=== PATIENT | male | born 1955 | race Caucasian/White ===

== ENCOUNTER 2020-03-27 19:28 | Emergency (ER) | payer OTHER, SELFPAY ==
[2020-03-27] VITALS (11 sets, daily range): BP systolic 110–136; BP diastolic 66–84; PULSE 57–71; RESP 16–32; TEMP 37.2; O2SAT 93–98
--- NOTE | 2020-03-27 19:38 | DI.RAD.S_ITS ---
PROCEDURE: XR CHEST 2V INDICATIONS: shortness of breath TECHNIQUE: 2 views of the chest were acquired. COMPARISON: None. FINDINGS: Surgical changes and devices: None. Lungs and pleura: Lungs are clear. No pleural effusions or pneumothorax. Mediastinum: Mediastinal contours are normal. Heart size is normal. Bones and chest wall: No suspicious bony abnormalities. Soft tissues appear unremarkable. IMPRESSION: No acute pulmonary process. Dictated by: Jennifer Castillo M.D. on 03/27/2020 at 20:15 Approved by: Jennifer Castillo M.D. on 03/27/2020 at 20:15
[2020-03-27 20:21] LABS: Add Manual Diff / Slide Review NO; Basophils Absolute Auto 100 /uL (0-100); Basophils Percent Auto 1.2 % (0-2); Eosinophils Absolute Auto 100 /uL (0-450); Eosinophils Percent Auto 1.6 % (2-4); Hematocrit 41.2 % (41-53); Hemoglobin 13.8 g/dL (13.5-17.5); Lymphocytes Absolute Auto 1800 /uL (1100-4500); Lymphocytes Percent Auto 19.9 % (25-40); Mean Corpuscular HGB Conc 33.6 % (30-36); Mean Corpuscular Hemoglobin 30.4 PG (26-34); Mean Corpuscular Volume 90.4 fL (80-100); Monocytes Absolute Auto 900 /uL (0-900); Monocytes Percent Auto 9.9 % (3-14); Neutrophils Absolute Auto 6000 /uL (1500-7000); Neutrophils Percent Auto 67.4 % (50-75); Platelet Count 269 X10^3/uL (150-400); Red Blood Cell Count 4.55 X10^6/uL (4.5-5.9); Red Cell Distribution Width 13.7 % (11.6-14.8); White Blood Cell Count 8.9 X10^3/uL (4.5-11.0)
[2020-03-27 20:38] LABS: Alanine Aminotransferase 36 IU/L (<50); Albumin Globulin Ratio 1.2 (1.0-2.8); Alkaline Phosphatase 59 U/L (38-126); Aspartate Aminotransferase 40 IU/L (17-59); BUN Creatinine Ratio 25.8 (6-22); Bilirubin Total 1.5 mg/dL (0.2-1.3); Blood Urea Nitrogen 17 mg/dL (9-20); Calcium 8.8 mg/dL (8.4-10.2); Carbon Dioxide 25 mmol/L (22-32); Chloride 106 mmol/L (98-107); Estimated Glomerular Filt Rate > 60.0 mL/min (>60); Globulin 3.3 g/dL (1.7-4.1); Glucose 114 mg/dL (80-110); HEMOLYSIS 37 (0-50); Potassium 3.9 mmol/L (3.4-5.1); Sodium 139 mmol/L (137-145); Total Protein 7.3 g/dL (6.3-8.2)
--- NOTE | 2020-03-27 21:37 | ED.SOB ---
HPI - SOB/Dyspnea General Chief Complaint: Shortness of Breath/Dyspnea Stated Complaint: Not Feeling Well,Fever,Chills,SOB,Cough Time Seen by Provider: 03/27/20 19:40 Source: patient Mode of arrival: Ambulatory Limitations: no limitations History of Present Illness HPI Narrative: 65-year-old male former smoker with noncontributory medical history presents with a chief complaint of a day or 2 of subjective fever, chills, cough with some trouble breathing as well as diarrhea. He denies any runny nose or sore throat. He denies any chest pain or abdominal pain. He denies any trouble with urination such as dysuria, frequency or urgency. 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 He denies any recent antibiotics, travel or exposure to bad food. He denies any exposure to persons known to have COVID-19. MD Complaint: shortness of breath and cough Onset (ago): day(s) Severity: mild Consistency/Duration: constant Relieving factors: nothing Exacerbating factors: nothing Associated symptoms: fever and cough Treatment prior to arrival: none Related Data Home oxygen amount: none Previous Rx's Medication Instructions Recorded diphenoxylate-atropine [Lomotil] 1 tab PO DAILY PRN #10 tab 03/28/20 Review of Systems Constitutional Constitutional: Reports chills, Denies fatigue, Reports fever(s), Denies frequent falls, Denies lethargy and Denies weakness Eyes Eyes: Denies change in vision, Denies eye discharge, Denies irritation and Denies loss of vision ENT Ears, Nose, Mouth, and Throat: Denies change in voice, Denies dizziness, Denies neck pain, Denies sore throat and Denies throat swelling Cardiovascular Cardiovascular: Denies chest pain, Denies irregular heart rhythm, Denies lightheadedness, Denies palpitations, Reports dyspnea, Denies dyspnea on exertion and Denies orthopnea Respiratory Respiratory: Reports cough, Reports dyspnea, Denies dyspnea on exertion and Denies wheezing Gastrointestinal Gastrointestinal: Denies abdominal pain, Denies change in bowel habits, Reports diarrhea, Denies nausea and Denies vomiting Genitourinary Genitourinary: Reports system reviewed and no additional complaints, except as documented Musculoskeletal Musculoskeletal: Denies neck pain and Denies numbness Integumentary/Breasts Skin/Breast: Denies pruritus, Denies erythema, Denies rash and Denies wounds Neurologic Neurologic: Denies behavioral changes, Denies confusion, Denies dizziness, Denies frequent falls, Denies loss of vision, Denies numbness and Denies weakness Psychiatric Psychiatric: Denies anxiety, Denies behavioral changes, Denies confusion, Denies depression, Denies homicidal ideation and Denies suicidal ideation Endocrine Endocrine: Denies fatigue, Denies flushing and Denies palpitations Hematologic/Lymphatic Hematologic/Lymphatic: Denies easy bruising Allergic/Immunologic Allergic/Immunologic: Denies urticaria, Denies throat swelling and Denies wheezing Patient History alcohol intake frequency: holidays/special occasions only Substance Use Type: marijuana Exam Narrative Exam Narrative: GENERAL: [65] year old patient appears stated age. Well-nourished, well-developed patient, in mild distress. HEAD: Atraumatic. Normocephalic. EYES: Pupils equal round and reactive. Extraocular motions intact. No scleral icterus. No injection or drainage. ENT: Nose without bleeding, purulent drainage. Throat without erythema, tonsillar hypertrophy or exudate. Airway patent. NECK: Trachea midline. Non tender CARDIOVASCULAR: Regular rate and rhythm without murmurs, gallops, or rubs. RESPIRATORY: Clear to auscultation. Breath sounds equal bilaterally. No wheezes, rales, or rhonchi. GASTROINTESTINAL: Abdomen soft, non-tender, nondistended. EXTREMITIES: No edema or joint tenderness. BACK: Nontender without deformity or crepitance. No flank tenderness. NEURO: AOx3. SKIN: No rash or erythema of visible areas Initial Vital Signs Initial Vital Signs: Vital Signs Temperature 98.9 F 03/27/20 19:36 Pulse Rate 70 03/27/20 19:36 Respiratory Rate 22 03/27/20 19:36 Blood Pressure 136/84 03/27/20 19:36 Pulse Oximetry 96 03/27/20 19:36 Course Orders Ordered: ED Orders 03/27/20 19:38 XR chest 2V Stat RT Consult Eval and Treat Now 03/27/20 19:58 EKG-12 Lead Stat 03/27/20 20:15 C-Reactive Protein Quant Stat Complete Blood Count AUTO DIFF Stat Comprehensive Metabolic Panel Stat D Dimer Stat Ferritin Stat Lactate (Lactic Acid) Stat Lactate Dehydrogenase Stat Procalcitonin Stat 03/27/20 22:57 CT chest wo con Stat Discontinued Medications Sodium Chloride (Normal Saline 0.9%) 1,000 mls @ 1,000 mls/hr IV BOLUS ONE Stop: 03/27/20 23:44 Vital Signs Vital signs: Vital Signs - 8 hr 03/27/20 19:36 03/27/20 20:00 03/27/20 20:30 Temperature 98.9 F Pulse Rate 71 65 65 Respiratory Rate 22 19 17 Blood Pressure 136/84 Pulse Oximetry 97 98 97 03/27/20 21:00 03/27/20 21:30 03/27/20 22:00 Temperature Pulse Rate 61 59 L 62 Respiratory Rate 17 16 25 H Blood Pressure Pulse Oximetry 95 95 96 03/27/20 22:18 03/27/20 22:30 03/27/20 22:40 Temperature Pulse Rate 60 60 58 L Respiratory Rate 19 19 18 Blood Pressure 110/66 110/66 Pulse Oximetry 95 94 93 03/27/20 23:00 03/27/20 23:30 03/28/20 00:00 Temperature Pulse Rate 61 57 L 56 L Respiratory Rate 32 H 16 14 Blood Pressure Pulse Oximetry 95 95 93 03/28/20 00:30 03/28/20 00:48 Temperature Pulse Rate 62 62 Respiratory Rate 17 17 Blood Pressure 122/67 Pulse Oximetry 94 97 MDM - SOB/Dyspnea Lab Data Result diagrams: 03/27/20 20:15 03/27/20 20:15 Labs: Lab Results 03/27/20 03/27/20 03/27/20 Range/Units 20:15 20:15 20:15 WBC 8.9 (4.5-11.0) X10^3/uL RBC 4.55 (4.5-5.9) X10^6/uL Hgb 13.8 (13.5-17.5) g/dL Hct 41.2 (41-53) % MCV 90.4 (80-100) fL MCH 30.4 (26-34) PG MCHC 33.6 (30-36) % RDW 13.7 (11.6-14.8) % Plt Count 269 (150-400) X10^3/uL Neut % (Auto) 67.4 (50-75) % Lymph % (Auto) 19.9 L (25-40) % [place] % (Auto) 9.9 (3-14) % Eos % (Auto) 1.6 L (2-4) % Baso % (Auto) 1.2 (0-2) % Neut # (Auto) 6000 (0833-8258) /uL Lymph # (Auto) 1800 (0047-8832) /uL [place] # (Auto) 900 (0-900) /uL Eos # (Auto) 100 (0-450) /uL Baso # (Auto) 100 (0-100) /uL D-Dimer (<230) ng/mL Sodium 139 (137-145) mmol/L Potassium 3.9 (3.4-5.1) mmol/L Chloride 106 (98-107) mmol/L Carbon Dioxide 25 (22-32) mmol/L BUN 17 (9-20) mg/dL Creatinine 0.66 (0.66-1.25) mg/dL Estimated GFR > 60.0 (>60) mL/min BUN/Creatinine Ratio 25.8 H (6-22) Glucose 114 H (80-110) mg/dL Lactate 1.0 (0.7-2.1) mmol/L Calcium 8.8 (8.4-10.2) mg/dL Ferritin (18-464) ng/mL Total Bilirubin 1.5 H (0.2-1.3) mg/dL AST 40 (17-59) IU/L ALT 36 (<50) IU/L Alkaline Phosphatase 59 (38-126) U/L Lactate Dehydrogenase (313-618) U/L C-Reactive Protein (<1.0) mg/dL Total Protein 7.3 (6.3-8.2) g/dL Albumin 4.0 (3.5-5.0) g/dL Globulin 3.3 (1.7-4.1) g/dL Albumin/Globulin Ratio 1.2 (1.0-2.8) Procalcitonin (<0.5) ng/mL COVID-19 PCR (Negative) 03/27/20 03/27/20 03/27/20 Range/Units 20:15 20:15 20:15 WBC (4.5-11.0) X10^3/uL RBC (4.5-5.9) X10^6/uL Hgb (13.5-17.5) g/dL Hct (41-53) % MCV (80-100) fL MCH (26-34) PG MCHC (30-36) % RDW (11.6-14.8) % Plt Count (150-400) X10^3/uL Neut % (Auto) (50-75) % Lymph % (Auto) (25-40) % [place] % (Auto) (3-14) % Eos % (Auto) (2-4) % Baso % (Auto) (0-2) % Neut # (Auto) (5433-1176) /uL Lymph # (Auto) (3589-2975) /uL [place] # (Auto) (0-900) /uL Eos # (Auto) (0-450) /uL Baso # (Auto) (0-100) /uL D-Dimer < 200 (<230) ng/mL Sodium (137-145) mmol/L Potassium (3.4-5.1) mmol/L Chloride (98-107) mmol/L Carbon Dioxide (22-32) mmol/L BUN (9-20) mg/dL Creatinine (0.66-1.25) mg/dL Estimated GFR (>60) mL/min BUN/Creatinine Ratio (6-22) Glucose (80-110) mg/dL Lactate (0.7-2.1) mmol/L Calcium (8.4-10.2) mg/dL Ferritin 76 (18-464) ng/mL Total Bilirubin (0.2-1.3) mg/dL AST (17-59) IU/L ALT (<50) IU/L Alkaline Phosphatase (38-126) U/L Lactate Dehydrogenase 597 (313-618) U/L C-Reactive Protein < 0.5 (<1.0) mg/dL Total Protein (6.3-8.2) g/dL Albumin (3.5-5.0) g/dL Globulin (1.7-4.1) g/dL Albumin/Globulin Ratio (1.0-2.8) Procalcitonin < 0.05 (<0.5) ng/mL COVID-19 PCR (Negative) 03/27/20 Range/Units 22:20 WBC (4.5-11.0) X10^3/uL RBC (4.5-5.9) X10^6/uL Hgb (13.5-17.5) g/dL Hct (41-53) % MCV (80-100) fL MCH (26-34) PG MCHC (30-36) % RDW (11.6-14.8) % Plt Count (150-400) X10^3/uL Neut % (Auto) (50-75) % Lymph % (Auto) (25-40) % [place] % (Auto) (3-14) % Eos % (Auto) (2-4) % Baso % (Auto) (0-2) % Neut # (Auto) (1894-4705) /uL Lymph # (Auto) (9769-4849) /uL [place] # (Auto) (0-900) /uL Eos # (Auto) (0-450) /uL Baso # (Auto) (0-100) /uL D-Dimer (<230) ng/mL Sodium (137-145) mmol/L Potassium (3.4-5.1) mmol/L Chloride (98-107) mmol/L Carbon Dioxide (22-32) mmol/L BUN (9-20) mg/dL Creatinine (0.66-1.25) mg/dL Estimated GFR (>60) mL/min BUN/Creatinine Ratio (6-22) Glucose (80-110) mg/dL Lactate (0.7-2.1) mmol/L Calcium (8.4-10.2) mg/dL Ferritin (18-464) ng/mL Total Bilirubin (0.2-1.3) mg/dL AST (17-59) IU/L ALT (<50) IU/L Alkaline Phosphatase (38-126) U/L Lactate Dehydrogenase (313-618) U/L C-Reactive Protein (<1.0) mg/dL Total Protein (6.3-8.2) g/dL Albumin (3.5-5.0) g/dL Globulin (1.7-4.1) g/dL Albumin/Globulin Ratio (1.0-2.8) Procalcitonin (<0.5) ng/mL COVID-19 PCR Negative (Negative) Imaging Data Chest x-ray: Radiologist's Impression: [address] [address] XRay Report Signed Patient: Price Lagunas MMR#: [id number] : 6Acct:[id number] Age/Sex: 65 / MDate of Service: 03/27/20 Loc: ED Accession Number: [id number] Procedure: XR chest 2V Ordering Provider: Kvng Shields D.O. PROCEDURE: XR CHEST 2V INDICATIONS: shortness of breath TECHNIQUE: 2 views of the chest were acquired. COMPARISON: None. FINDINGS: Surgical changes and devices: None. Lungs and pleura: Lungs are clear. No pleural effusions or pneumothorax. Mediastinum: Mediastinal contours are normal. Heart size is normal. Bones and chest wall: No suspicious bony abnormalities. Soft tissues appear unremarkable. IMPRESSION: No acute pulmonary process. Dictated by: Jennifer Castillo M.D. on 03/27/2020 at 20:15 Approved by: Jennifer Castillo M.D. on 03/27/2020 at 20:15 [facility] Narrative Medical decision making narrative: Multiple etiologies for patient's symptoms considered including: [Mild COVID-19 versus infectious diarrhea versus pneumonia versus other] Patient's symptoms improved or duration of stay with above-stated therapies. Findings and discharge diagnosis discussed with patient/family followed by verbalization of understanding Return precautions discussed with patient/family whom verbalize understanding. Discharge Plan Departure Patient Disposition: Home Clinical Impression: Cough Diarrhea Qualifiers: Diarrhea type: unspecified type Qualified Code(s): R19.7 - Diarrhea, unspecified Discharge Date/Time: 03/28/20 00:48 Instructions: Diarrhea, Can COVID-19 be prevented? Activity Restrictions/Additional Instructions: *You have been diagnosed with [ cough, shortness of breath and diarrhea. These symptoms are likely from a viral cause, and it could be COVID] *What to do: * per recommendations from the CDC and the [facility] Department of Health * stay home except to get medical care. Restrict activities outside your home, except for getting medical care. Do not go to work, school, or public areas. Avoid using public transportation, ride sharing, or taxis. * separate yourself from other people in your home. * call ahead before visiting your doctor * Wear a facemask * Cover your coughs and sneezes * Clean your hands often * Avoid sharing household items * Clean all high-touch services every day * Monitor your symptoms and seek prompt medical attention if your illness is worsening, particularly with difficulty in breathing. Discussed continuing home isolation * for individuals with symptoms who are confirmed or suspected cases of COVID-19 and are directed to care for themselves at home, discontinue home isolation under the following conditions: 1. At least 72 hours have passed since recovery, defined as resolution of fever without the use of fever reducing medications, and improvement in respiratory symptoms (cough, shortness of breath) AND, 2. At least 7 days have passed since symptoms 1st appeared Individuals with laboratory confirmed COVID-19 who have not had any symptoms may discontinue home isolation when at least 7 days have passed since the date of their 1st COVID-19 diagnostic test and have had no subsequent illness 1. Drink plenty of fluids with frequent small sips. 2. For the next 24 hours a clear liquid diet is advised. After that please employ a brat diet which would include bananas, rice, apples, toast. 3. Please take medications as directed. 4. Please follow-up with your doctor in the next 1-2 days. Call the office for an appointment. 5. Please return to the emergency Department for any worsening or persistent symptoms, such as increasing pain or fever. Prescriptions: New diphenoxylate-atropine [Lomotil] 2.5-0.025 mg tablet 1 tab PO DAILY PRN (Reason: diarrhea) Qty: 10 RF: 0
[2020-03-27 22:09] LABS: Procalcitonin < 0.05 ng/mL (<0.5)
[2020-03-27 22:26] LABS: D Dimer < 200 ng/mL (<230)
[2020-03-27 22:54] LABS: Lactate Dehydrogenase 597 U/L (313-618)
--- NOTE | 2020-03-27 22:57 | DI.CT.S_ITS ---
PROCEDURE: CT CHEST WO CON INDICATIONS: cough, fever, chills, Shortness of breath TECHNIQUE: Noncontrast 5 mm thick sections acquired from the pulmonary apices to the posterior costophrenic angles. 1 mm lung window, 5 mm thick coronal and sagittal and 7 mm axial MIP reformats were then acquired. For radiation dose reduction, the following was used: automated exposure control, adjustment of mA and/or kV according to patient size. COMPARISON: [facility], CR, XR CHEST 2V, 03/27/2020, 18:40. FINDINGS: Image quality: Excellent. Lungs and pleura: No acute air space opacities. No pleural effusions or pneumothorax. Central and peripheral airways are patent and normal in caliber. Calcified granulomas noted in the left base. Minimal chronic interstitial changes are noted. Mediastinum: Heart size is normal. No pericardial effusion. No mediastinal adenopathy by size criteria. Calcified mediastinal and hilar lymph nodes are present. Thoracic aorta and central pulmonary arteries are normal in size. Esophagus is normal in caliber. Mild hiatal hernia. Bones and chest wall: No suspicious bony lesions. No vertebral body compression fractures. No axillary or supraclavicular adenopathy by size criteria. Thyroid gland is unremarkable . Abdomen: Visualized upper abdominal solid organs and bowel loops appear normal in the absence of contrast. IMPRESSION: 1. Lungs are clear. 2. Calcified granuloma as well as mediastinal lymph nodes suggest prior granulomatous exposure. The above findings are concordant with preliminary report. Dictated by: Jennifer Castillo M.D. on 03/28/2020 at 11:11 Approved by: Jennifer Castillo M.D. on 03/28/2020 at 11:13
[2020-03-27 22:59] LABS: C-Reactive Protein Quant < 0.5 mg/dL (<1.0)
[2020-03-27 23:26] LABS: Ferritin 76 ng/mL (18-464)
[2020-03-28] VITALS: PULSE 56; RESP 14; O2SAT 93
[2020-03-28 00:30] VITALS: PULSE 62; RESP 17; O2SAT 94
[2020-03-28 00:39] LABS: COVID19 -Nasal RAPID Negative (Negative)
[2020-03-28 00:48] VITALS: BP 122/67; PULSE 62; RESP 17; O2SAT 97
--- NOTE | 2020-03-28 00:51 | PC.NURSE ---
1000ml NS bolus began 03/27/20 at 2300 fully infused at 03/28/20 0015, unable to chart in [facility]
== END 2020-03-28 00:48 | disposition home or self-care (01) ==
PROVIDERS: Emergency Provider Emergency Medicine
DX: Z03.818 Encounter for observation for suspected exposure to other biological agents ruled out (principal); R50.9 Fever, unspecified; R05 Cough; R19.7 Diarrhea, unspecified
CPT/HCPCS: 36415; 71046; 71250; 80053; 82728; 83605; 83615; 84145; 85025; 85379; 86140; 87635; 93005; 99284